=== PATIENT | male | born 1955 | race Caucasian/White ===

== ENCOUNTER 2017-02-17 03:30 | Emergency (ER) | payer BC, MEDICARE ==
[2017-02-17 04:36] LABS: HEMOGLOBIN 15.2 gm/dl (14.0-17.5); RED BLOOD COUNT 5.09 M/UL (4.20-5.50)
[2017-02-17 05:03] LABS: BUN/CREATININE RATIO 19 (0-10)
== END 2017-02-17 05:55 | disposition home or self-care (01) ==
LOC: ER1 03:30
PROVIDERS: Family Medicine
DX: J98.01 Acute bronchospasm (principal); J40 Bronchitis, not specified as acute or chronic; I25.810 Atherosclerosis of coronary artery bypass graft(s) without angina pectoris; Z95.1 Presence of aortocoronary bypass graft; Z79.82 Long term (current) use of aspirin; Z79.84 Long term (current) use of oral hypoglycemic drugs; Z79.899 Other long term (current) drug therapy
CPT/HCPCS: 71020; 80053; 85025; 94664; 96374; 99283; J2930